=== PATIENT | female | born 1990 | race Caucasian/White ===

== ENCOUNTER 2020-12-29 20:22 | Emergency (ER) | payer BC ==
[~2020-12-29] VITALS: Ht 162.6 cm; Wt 56.7 kg
--- NOTE | 2020-12-29 21:00 | NUR ---
Dr. Roebrtson at bedside, MSE in progress.
--- NOTE | 2020-12-29 21:36 | NUR ---
Patient wanted to go home and to call once COVID test results are obtained. Patient discharged to home in stable condition. Written and verbal after care instructions given. Patient verbalizes understanding of instructions. Stressed follow up or return to ER for worsening s/s. Steady gait.
[2020-12-29 21:37] VITALS: BP 118/73
== END 2020-12-29 21:37 | disposition home or self-care (01) ==
LOC: ER 20:26
DX: O98.53 Other viral diseases complicating the puerperium (principal); B34.9 Viral infection, unspecified; Z20.822 Contact with and (suspected) exposure to COVID-19; Z88.6 Allergy status to analgesic agent; Z91.018 Allergy to other foods
CPT/HCPCS: A4663